=== PATIENT | female | born 1950 | race Caucasian/White ===

== ENCOUNTER 2024-12-18 15:53 | Outpatient (REF) | payer MEDICARE, OTHER, SELFPAY ==
--- OUTSIDE RECORDS SUMMARY | 2024-12-18 16:57 | XMS_ITS | Clinical Summary ---
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 Family History Medical History Relation Name Comments Melanoma Father barry Breast cancer Maternal Grandmother Breast cancer Mother's Sister 1 Breast cancer Mother's Sister 2 Breast cancer Mother's Sister 3 Breast cancer Mother's Sister 4 Relation Name Status Comments Father barry Maternal Grandmother Mother Mother's Sister 1 Alive Mother's Sister 2 Alive Mother's Sister 3 Alive Mother's Sister 4 Alive Social History Tobacco Use Types Packs/Day Years Used Date Smoking Tobacco: Former Smokeless Tobacco: Former Alcohol Use Standard Drinks/Week Comments Not Asked 0 (1 standard drink = 0.6 oz pur e alcohol) Comments No Sex and Gender Information Value Date Recorded Sex Assigned at Not on file Legal Sex Female 6:14 AM EST Gender Identity Not on file Sexual Orientation Not on file Obstetrics History Para Term AB IAB SAB Ectopic Multiple Livin g Live Births 2 Last Filed Vital Signs Vital Sign Reading Time Taken Comments Blood Pressure - - Pulse - - Temperature - - Respiratory Rate - - Oxygen Saturation - - Inhaled Oxygen Concentration - - Weight 79.4 kg (175 lb) 08/03/2024 8:05 AM EST Height 165.1 cm (5' 5 ) 08/03/2024 8:05 AM EST Body Mass Index 29.12 08/03/2024 8:05 AM EST Plan of Treatment Health Maintenance Due Date Last Done Comments DTaP,Tdap,and Td Vaccines (1 - Tdap) 1969 Colorectal Cancer Screening: Colonoscopy 06/27/2022 Depression Screening 06/27/2022 Falls Risk Assessment 06/27/2022 Hepatitis C Screening 06/27/2022 Medicare Annual Wellness Visit 06/27/2022 Social Influencers of Health Screening 06/27/2022 Zoster Vaccines (2 of 2) 05/03/2024 03/08/2024 COVID-19 Vaccine (8 - Moderna risk season) 2024 04/18/2024, 04/18/2023, 04/13/2022, Additional history exists Osteoporosis Screening (Bone Density Screening) 08/03/2034 08/03/2024, 07/24/2020, 05/30/2018 RSV Immunization Adult Patients Completed 04/21/2023 Pneumococcal Vaccine: 50+ Years Completed 04/29/2023, 03/31/2016, 01/13/2015 Influenza Vaccine Completed 04/05/2024, , 04/03/2022, Additional history exists Breast Cancer Screening Discontinued 08/03/19, 08/02/2023, 07/31/2022, Additional history exists HIB Vaccines Aged Out No longer eligi ble based on patient's age to complete this topic HPV Vaccines Aged Out No longer eligi ble based on patient's age to complete this topic Hepatitis A Vaccines Aged Out No long er eligible based on patient's age to complete this topic Hepatitis B Vaccines Aged Out No long er eligible based on patient's age to complete this topic IPV Vaccines Aged Out No longer eligi ble based on patient's age to complete this topic MMR Vaccines Aged Out No longer eligi ble based on patient's age to complete this topic Meningococcal ACWY Vaccine Aged Out N o longer eligible based on patient's age to complete this topic Meningococcal B Vaccine Aged Out No l onger eligible based on patient's age to complete this topic RSV Immunization Patients Under 20 months Aged Out No longer eligible based on patient's age to complete this topic Varicella Vaccines Aged Out No longer eligible based on patient's age to complete this topic Procedures Procedure Name Priority Date/Time Associated Diagnosis Comments MG MAMMO DIGITAL SCREENING W BRONSON BILAT Routine 08/03/2024 8:16 AM EST Encounter for screening mammogram for breast cancer BD BONE DENSITY DXA AXIAL SKELETON Routine 08/03/2024 8:01 AM EST Encounter for screening for osteoporosis from Last 3 Months or Most Recently Relevant to Health Maintenance Results * MG Mammo Digital Screening w Bronson bilat (08/03/2024 8:16 AM EST) Anatomical Region Laterality Modality Breast Bilateral Mammography 08/03/2024 10:5 7 AM EST Impressions 08/03/2024 11:05 AM EST No mammographic evidence of malignancy. ?? No suspicious interval change. A negative mammogram in the presence of a clinically suspicious palpable abnormality does not preclude the possibility of malignancy or alter the indications for biopsy. ASSESSMENT: ?? BI-RADS 2: BENIGN RECOMMENDATION(S): 1: Routine screening mammogram BILATERAL in 1 year. -------- FINAL REPORT -------- Dictated By: Noah Aguilar Dictated Date: 08/03/2024 10:57 ET Assigned Physician: Noah Aguilar Reviewed and Electronically Signed By: Noah Aguilar Signed Date: 08/03/2024 11:05 ET Workstation ID: [id number] Transcribed By: Self Edit Transcribed Date: 08/03/2024 10:57 ET Narrative 08/03/2024 11:05 AM EST EXAM: ??SCREENING MAMMOGRAPHY, BILATERAL HISTORY: ??SCREENING. ??Family history of breast cancer; maternal grandmother and multiple maternal aunts. Surgical biopsy left breast 2014. COMPARISON: ??08/02/2023, 07/31/2022, 07/28/2021, 07/24/2020 TECHNIQUE: Synthesized CC and MLO projections of each breast. ??Tomosynthesis of each breast in the CC and MLO projections. ADDITIONAL IMAGING: None Computer-aided detection was employed with the iCAD ??profound AI 3-D. TISSUE DENSITY: There are scattered areas of fibroglandular density. (BI-RADS category B) FINDINGS: RIGHT BREAST: No suspicious mass. ??No distortion. ??Diffuse round, punctate and amorphous calcifications with no suspicious grouping. LEFT BREAST: No suspicious mass. No suspicious calcification. No distortion. ?? No additional suspicious left breast findings Procedure Note Noah Aguilar MD - 08/03/2024 EXAM: SCREENING MAMMOGRAPHY, BILATERAL HISTORY: SCREENING. Family history of breast cancer; maternalgrandmother and multiple maternal aunts. Surgical biopsy left breast 2014. COMPARISON: 08/02/2023, 07/31/2022, 07/28/2021, 07/24/2020 TECHNIQUE: Synthesized CC and MLO projections of each breast.Tomosynthesis of each breast in the CC and MLO projections. ADDITIONAL IMAGING: None Computer-aided detection was employed with the iCAD [employer] AI 3-D. TISSUE DENSITY: There are scattered areas of fibroglandular density.(BI-RADS category B) FINDINGS: RIGHT BREAST: No suspicious mass. No distortion. Diffuse round, punctate and amorphouscalcifications with no suspicious grouping. LEFT BREAST: No suspicious mass. No suspicious calcification. No distortion. Noadditional suspicious left breast findings IMPRESSION: No mammographic evidence of malignancy. No suspicious interval change. A negative mammogram in the presence of a clinically suspicious palpableabnormality does not preclude the possibility of malignancy or alter theindications for biopsy. ASSESSMENT: BI-RADS 2: BENIGN RECOMMENDATION(S): 1: Routine screening mammogram BILATERAL in 1 year. -------- FINAL REPORT -------- Dictated By: Noah Aguilar Dictated Date: 08/03/2024 10:57 ET Assigned Physician: Noah Aguilar Reviewed and Electronically Signed By: Noah Augilar Signed Date: 08/03/2024 11:05 ET Workstation ID: [id number] Transcribed By: Self Edit Transcribed Date: 08/03/2024 10:57 ET us Self Referral Sppl IMG BI PROCEDURES Final Resul t * BD Bone Density DXA Axial Skeleton (08/03/2024 8:01 AM EST) Anatomical Region Laterality Modality Wrist, Hip, L-spine Bone Densito metry 08/03/2024 9:57 AM EST Impressions 08/03/2024 9:58 AM EST 1. There is no evidence of osteoporosis or osteopenia. ??There has been an increase of 0.2% in bone mineral density in the lumbar spine since the prior examination of 07/24/2020. ??There has been a decrease of 2.8% in bone mineral density in the right femur and a decrease of 1.2% in bone mineral density in the left femur. 2. FRAX analysis yields a 10-year probability of major osteoporotic fracture of 9.1% and a 10-year probability of hip fracture of 1.3%. Code 38014 -------- FINAL REPORT -------- Dictated By: Balaji Giraldo Dictated Date: 08/03/2024 09:57 ET Assigned Physician: Balaji Giraldo Reviewed and Electronically Signed By: Balaji Giraldo Signed Date: 08/03/2024 09:58 ET Workstation ID: [id number] Transcribed By: Self Edit Transcribed Date: 08/03/2024 09:57 ET Narrative 08/03/2024 9:58 AM EST HISTORY: ??The patient is a 73-year-old postmenopausal female with clinical concern for metabolic bone disease. FINDINGS: ??Dual energy x-ray absorptiometry of the lumbar spine and femurs is performed. The mean bone mineral density at L1-L4 (with the exclusion of L3) is 1.204 gm/cm2 which is 103% of that of young normals and 115% of that of age matched controls. This yields a T-score of 0.3 and a Z-score of 1.3 and there is therefore no evidence of osteoporosis or osteopenia here. The mean bone mineral density of the femurs bilaterally is 0.948 gm/cm2 which is 94% of that of young normals and 111% of that of age matched controls. ??This yields a T-score of -0.5 and a Z-score of 0.7 and there is therefore no evidence of osteoporosis or osteopenia here. Procedure Note Balaji Giraldo MD - 08/03/2024 HISTORY: The patient is a 73-year-old postmenopausal female with clinicalconcern for metabolic bone disease. FINDINGS: Dual energy x-ray absorptiometry of the lumbar spine and femursis performed. The mean bone mineral density at L1-L4 (with the exclusionof L3) is 1.204 gm/cm2 which is 103% of that of young normals and 115% ofthat of age matched controls. This yields a T-score of 0.3 and a Z-scoreof 1.3 and there is therefore no evidence of osteoporosis or osteopeniahere. The mean bone mineral density of the femurs bilaterally is 0.948 gm/dt7aayxb is 94% of that of young normals and 111% of that of age matchedcontrols. This yields a T-score of -0.5 and a Z-score of 0.7 and there istherefore no evidence of osteoporosis or osteopenia here. IMPRESSION: 1. There is no evidence of osteoporosis or osteopenia. There has been anincrease of 0.2% in bone mineral density in the lumbar spine since theprior examination of 07/24/2020. There has been a decrease of 2.8% in bonemineral density in the right femur and a decrease of 1.2% in bone mineraldensity in the left femur. 2. FRAX analysis yields a 10-year probability of major osteoporoticfracture of 9.1% and a 10-year probability of hip fracture of 1.3%. Code 86511 -------- FINAL REPORT -------- Dictated By: Balaji Giraldo Dictated Date: 08/03/2024 09:57 ET Assigned Physician: Balaji Giraldo Reviewed and Electronically Signed By: Balaji Giraldo Signed Date: 08/03/2024 09:58 ET Workstation ID: [id number] Transcribed By: Self Edit Transcribed Date: 08/03/2024 09:57 ET Suresh Henning MD IM DXA PROCEDURES Final Res ult from Last 3 Months or Most Recently Relevant to Health Maintenance Insurance MEDICARE [facility] Care Teams Bleach Mixer Relationship Specialty Start Date End Date Suresh Henning MD [address] [place] [phone] PCP - General Internal Medicine 01/02/14
== END 2024-12-18 15:54 | disposition home or self-care (01) ==
LOC: HO.HOSX 15:53
PROVIDERS: Visit Provider Physician Assistant
DX: Z13.89 Encounter for screening for other disorder (principal)

== ENCOUNTER 2024-12-19 09:01 | Outpatient (REF) | payer MEDICARE, OTHER, SELFPAY ==
--- NOTE | ~2024-12-19 | XR_ITS ---
Exam: Two-view x-ray tibia-fibula. TECHNIQUE: AP and lateral views lower extremity INDICATION: Unspecified fracture of the left fibula Prior: None Findings: Medial compartment of the knee demonstrates moderate marginal osteophyte formation. Intercondylar tubercles are peaked. Amorphous calcific density projects in the posterior joint line involving the meniscus and adjacent capsular structures. There is an notched appearance in 2 locations involving the posterior proximal diaphysis of the fibula on the lateral exam. Small marginal osteophyte is present involving the inferior tip of medial malleolus. 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 Nonspecific notched contour of the posterior cortex of the proximal fibular diaphysis. Electronically signed by: Ethan Cat MD 12/19/2024 03:13 PM EDT
--- OUTSIDE RECORDS SUMMARY | 2024-12-20 09:26 | XMS_ITS | Clinical Summary ---
Author Organization [facility] Address [address] [place] [address] Phone Care Team Providers Care Magnetic Testing Technician Name Role Phone Suresh Henning MD Primary Care Provider + [phone] Surgical History Surgery Date Site/Laterality Comments STEREOTACTIC [...] Signed Date: 08/03/2024 11:05 ET Workstation ID: [id number] Transcribed By: Self Edit Transcribed Date: 08/03/2024 [...] Computer-aided detection was employed with the iCAD [employer] AI 3-D. TISSUE DENSITY: There are scattered [...] Signed Date: 08/03/2024 11:05 ET Workstation ID: [id number] Transcribed By: Self Edit Transcribed Date: 08/03/2024 [...] probability of hip fracture of 1.3%. Code 11920 -------- FINAL REPORT -------- Dictated By: Balaji Giraldo Dictated Date: 08/03/2024 09:57 ET Assigned Physician: Balaji Giraldo Reviewed and Electronically Signed By: Balaji Giraldo Signed Date: 08/03/2024 09:58 ET Workstation ID: [id number] Transcribed By: Self Edit Transcribed Date: 08/03/2024 [...] density of the femurs bilaterally is 0.948 gm/tp3yagir is 94% of that of young normals [...] probability of hip fracture of 1.3%. Code 34996 -------- FINAL REPORT -------- Dictated By: Balaji Giraldo Dictated Date: 08/03/2024 09:57 ET Assigned Physician: Balaji Giraldo Reviewed and Electronically Signed By: Balaji Giraldo Signed Date: 08/03/2024 09:58 ET Workstation ID: [id number] Transcribed By: Self Edit Transcribed Date: 08/03/2024 09:57 ET Suresh Henning MD IM DXA PROCEDURES Final Res ult from Last 3 Months or Most Recently Relevant to Health Maintenance Insurance [facility] Care Teams Magnetic Testing Technician Relationship Specialty Start Date End Date Suresh Henning MD [address] [place] [id number] PCP - General Internal Medicine 01/02/14
== END 2024-12-19 09:02 | disposition home or self-care (01) ==
LOC: HO.HOSX 09:01
PROVIDERS: Visit Provider Physician Assistant
DX: S82.402A Unspecified fracture of shaft of left fibula, initial encounter for closed fracture (principal)
CPT/HCPCS: 73590; 99202

== ENCOUNTER 2024-12-19 13:03 | Outpatient (AMB) | payer MEDICARE, OTHER, SELFPAY ==
--- NOTE | 2024-12-19 13:14 | MHC.OFFVIS ---
Vital Signs 12/19/24 13:20 Height 5 ft 5 in Weight 175 lb BMI 29.1 Handedness Right Intake Visit Reasons: FC- LT proximal fibula fx Intake Note: Aliyah is a 74 year old female who presents today for urgent care follow up of her left proximal fibula fracture. Patient states that she went to urgent care due to getting a piece of the weed waker got in her frank. She has been walking with no problem and going up and down the stairs. She mentions that she is not haivng pain. IMPRESSION: There is a fracture at the proximal shaft of the fibula Allergies prednisone Adverse Reaction (Unknown, Verified 12/19/24 13:17) muscle pain HPI HPI FC- LT proximal fibula fx: Details: Ms. Alejandrina Ly is a 74 year old female who presents today a follow-up after visiting [facility]. She states that she was weed whacking her lawn and a piece of the weed whacking strain dislodged and hit the front of her frank breaking the skin. She went for a wound check tetanus shot and/or antibiotics. She reports the took an x-ray to see if there is any foreign body. Luckily, there was no foreign body noted. She was discharged home and later received a phone call that evening stating that she had a proximal tibial shaft fracture. She denies any injury or trauma to the area of the tibia in question. She is not having any pain at this time in his walking without difficulty. IMPRESSION: There is a fracture at the proximal shaft of the fibula [facility] Social History (Updated 12/19/24 @ 13:20 by Dominga Burks) Alcohol intake: current Alcohol intake frequency: holidays/special occasions only Patient Tobacco Use Status: Never used Tobacco Current occupational status: retired Current occupation: right hand dominant Review of Systems Const All systems reviewed & are unremarkable except as noted in HPI and below Physical Exam Vital Signs: BMI result Body Mass Index 29.1 Const General: cooperative, healthy appearing and no acute distress Resp Effort & Inspection: normal respiratory effort and able to speak in complete sentences Extrem Other: Left lower extremity has small puncture wound on the distal half of the anterior aspect of her leg. There is no surrounding erythema or drainage. No signs of infection. She has no tenderness to palpation with calf squeeze or tenderness to palpation over the fibular head or shaft. She walks without an antalgic gait. NVI Assessment & Plan Assessment & Plan (1) Puncture wound of left lower leg: Code(s): S81.832A - Puncture wound without foreign body, left lower leg, initial encounter Category: Medical Plan Ms. Alejandrina Ly is a 74 year old female who presents today a follow-up after visiting [facility]. She states that she was weed whacking her lawn and a piece of the weed whacking strain dislodged and hit the front of her frank breaking the skin. She went for a wound check tetanus shot and/or antibiotics. She reports the took an x-ray to see if there is any foreign body. Luckily, there was no foreign body noted. She was discharged home and later received a phone call that evening stating that she had a proximal tibial shaft fracture. She denies any injury or trauma to the area of the tibia in question. She is not having any pain at this time in his walking without difficulty. Although the interpretation of the prior x-rays are [facility], the patient is not having any discomfort and denies any trauma to the area of the proximal fibula. She is walking without an antalgic gait. There is no evidence of infection around the puncture wound in which the string from the weed Demetra penetrated. New x-rays of the left tibia and fibula were obtained while in the office today and are again negative for any acute fracture or dislocation. However, there is a lucency vertically through the proximal fibular shaft. In this case, I believe these to be benign findings given her physical examination. There is no additional need for ortho intervention at this time and she will follow up PRN, sooner if needed. Orders: Orders XR tibia fibula LT 2V Today S82.402A - Unspecified fracture of shaft of left fibula, initial encounter for closed fracture Coding Level of Care Code New Pt Level 3 (60030) Diagnoses Puncture wound of left lower leg S81.832A
[2024-12-19 13:20] VITALS: BMI 29.1
--- OUTSIDE RECORDS SUMMARY | 2024-12-19 14:31 | XMS_ITS | Clinical Summary ---
Author Organization [facility] Address [address] [place] [address] Phone Care Team Providers Care Operation Agent Name Role Phone Suresh Henning MD Primary Care Provider + [phone] Surgical History Surgery Date Site/Laterality Comments STEREOTACTIC [...] Signed Date: 08/03/2024 11:05 ET Workstation ID: [id number] Transcribed By: Self Edit Transcribed Date: 08/03/2024 [...] Computer-aided detection was employed with the iCAD [employer] AI 3-D. TISSUE DENSITY: There are scattered [...] Signed Date: 08/03/2024 11:05 ET Workstation ID: [id number] Transcribed By: Self Edit Transcribed Date: 08/03/2024 [...] probability of hip fracture of 1.3%. Code 69673 -------- FINAL REPORT -------- Dictated By: Balaji Giraldo Dictated Date: 08/03/2024 09:57 ET Assigned Physician: Balaji Giraldo Reviewed and Electronically Signed By: Balaji Giraldo Signed Date: 08/03/2024 09:58 ET Workstation ID: [id number] Transcribed By: Self Edit Transcribed Date: 08/03/2024 [...] density of the femurs bilaterally is 0.948 gm/dc6jweer is 94% of that of young normals [...] probability of hip fracture of 1.3%. Code 93629 -------- FINAL REPORT -------- Dictated By: Balaji Giraldo Dictated Date: 08/03/2024 09:57 ET Assigned Physician: Balaji Giraldo Reviewed and Electronically Signed By: Balaji Giraldo Signed Date: 08/03/2024 09:58 ET Workstation ID: [id number] Transcribed By: Self Edit Transcribed Date: 08/03/2024 09:57 ET Suresh Henning MD IM DXA PROCEDURES Final Res ult from Last 3 Months or Most Recently Relevant to Health Maintenance Insurance MEDICARE [facility] Care Teams Operation Agent Relationship Specialty Start Date End Date Suresh Henning MD [address] [place] [phone] PCP - General Internal Medicine 01/02/14
== END 2024-12-19 13:37 | disposition home or self-care (01) ==
LOC: HO.HOS 13:04
PROVIDERS: PCP Internal Medicine; Visit Provider Physician Assistant
DX: S81.832A Puncture wound without foreign body, left lower leg, initial encounter (principal)
CPT/HCPCS: 99203

== ENCOUNTER → 2024-12-19 13:05 | Outpatient (BNV) | payer MEDICARE, OTHER, SELFPAY | PROVIDERS: Visit Provider Radiology Diagnostic Radiology | DX: M17.12 Unilateral primary osteoarthritis, left knee (principal); M11.262 Other chondrocalcinosis, left knee | CPT/HCPCS: 73590 ==